=== PATIENT | male | born 1955 | race Caucasian/White ===

== ENCOUNTER 2022-04-14 20:15 | Emergency (ER) | payer OTHER ==
[2022-04-14] MEDS ORDERED: Ketorolac 60 MG/2 ML SDV IM STA (21:10)
[2022-04-14] MEDS ORDERED: Orphenadrine 60 MG/2 ML Inj IM STA (21:10)
== END 2022-04-14 23:57 | disposition home or self-care (01) ==
LOC: MW.ED 20:15
DX: M47.812 Spondylosis without myelopathy or radiculopathy, cervical region (principal); M47.814 Spondylosis without myelopathy or radiculopathy, thoracic region; S22.030D Wedge compression fracture of third thoracic vertebra, subsequent encounter for fracture with routine healing; W00.0XXD Fall on same level due to ice and snow, subsequent encounter
CPT/HCPCS: 70450; 72125; 72128; 96372; 99283; J1885; J2360

== ENCOUNTER 2022-10-18 05:34 | Emergency (ER) | payer SELFPAY ==
[2022-10-18] MEDS ORDERED: Ketorolac 30 MG/ML SDV IVPUSH ONE (06:16)
== END 2022-10-18 07:31 | disposition home or self-care (01) ==
LOC: MW.ED 05:34
DX: M25.511 Pain in right shoulder (principal)
CPT/HCPCS: 73030; 96374; 99283; J1885; 99284

== ENCOUNTER 2023-03-16 10:31 | Emergency (ER) | payer OTHER ==
[2023-03-16] MEDS ORDERED: Lidocaine 4% 1 each Patch TOP STA (11:02)
[2023-03-16] MEDS ORDERED: Ketorolac 30 MG/ML SDV IM ONE (11:02)
== END 2023-03-16 12:51 | disposition home or self-care (01) ==
LOC: MW.ED 10:31
DX: M25.511 Pain in right shoulder (principal)
CPT/HCPCS: 73030; 96372; 99283; A9270; J1885; 99284

== ENCOUNTER 2024-03-23 23:29 | Emergency (ER) | payer SELFPAY | END 2024-03-23 23:45 | disposition left against medical advice (07) | LOC: MW.ED 23:29 | DX: Z53.21 Procedure and treatment not carried out due to patient leaving prior to being seen by health care provider (principal) ==